=== PATIENT | female | born 1980 | race African-American/Black ===

== ENCOUNTER 2018-06-06 09:32 | Emergency (ER) | payer BC ==
[~2018-06-06] VITALS: Ht 165.1 cm; Wt 131.5 kg
[2018-06-06 10:11] VITALS: BP 153/92
--- NOTE | 2018-06-06 11:03 | PHYS DOC ---
Past Medical History Past Medical History: Asthma, Diabetes-Type II, Hypertension Past Surgical History: Alcohol Use: Occasionally Drug Use: None Adult General Chief Complaint Chief Complaint: FLU SYMPTOM HPI HPI Patient is a 37 year old AA female who presents to the emergency room today with complaints of a productive cough with clear sputum, fever, fatigue, hoarse voice, nasal congestion, sinus pressure, and hoarse voice since yesterday. Patient states she feels like she has a sinus infection, she reports history of frequent sinus infections. She denies any nausea, vomiting, diarrhea, abdominal pain, sore throat, or ear pain. Review of Systems Review of Systems Constitutional: See history of present illness Eyes: Denies changes HENT: See history of present illness Respiratory: Denies wheezing or shortness of breath; see history of present illness [] Cardiovascular: No additional information not addressed in HPI [] GI: Denies abdominal pain, nausea, vomiting, or diarrhea [] Musculoskeletal: Reports body aches Integument: Denies rash or skin lesions [] Neurologic: Reports sinus headache All other systems were reviewed and found to be within normal limits, except as documented in this note. Current Medications Current Medications Current Medications Medications (Trade) Dose Ordered Sig/Sravan Start Time Stop Time Status Last Admin Dose Admin Acetaminophen (Tylenol) 1,000 mg 1X ONCE 06/06/18 11:00 06/06/18 11:14 DC 06/06/18 11:22 1,000 MG Allergies Allergies Allergies Coded Allergies Type Severity Reaction Last Updated Verified No Known Drug Allergies 06/06/18 No Physical Exam Physical Exam Constitutional: Well developed, well nourished, no acute distress, non-toxic appearance, obese. [] HENT: Normocephalic, atraumatic, bilateral external ears normal, bilateral TMs normal, posterior pharynx normal, oropharynx moist, no oral exudates, nose normal. [] Eyes: PERRLA, conjunctiva normal, no discharge. [] Neck: Normal range of motion, no tenderness, supple, no stridor. [] Cardiovascular: Tachycardic regular rhythm, no murmur [] Lungs & Thorax: Bilateral breath sounds clear to auscultation [] Skin: Warm, dry, no erythema, no rash. [] Extremities: No cyanosis, ROM intact Neurologic: Alert and oriented X 3, no focal deficits noted. [] Psychologic: Affect normal, judgement normal, mood normal. [] Current Patient Data Vital Signs Vital Signs Date Time Temp Pulse Resp B/P (MAP) Pulse Ox O2 Delivery O2 Flow Rate FiO2 06/06/18 10:11 100.3 107 18 153/92 (112) 95 Room Air 100.3 Lab Values Laboratory Tests Test 06/06/18 10:04 Influenza Type A Antigen Positive (NEGATIVE) Influenza Type B Antigen Negative (NEGATIVE) EKG EKG [] Radiology/Procedures Radiology/Procedures [] Course & Med Decision Making Course & Med Decision Making Pertinent Labs and Imaging studies reviewed. (See chart for details) dx: influenza A prescription for tamiflu. encouraged fluids, alternate tylenol and ibuprofen prn pain/fever. Follow up with PCP if sx persist, return to ER if sx worsen. Patient verbalized an understanding of home care, medications, follow-up, and return to ED instructions and was in agreement with the plan of care. [] Dragon Disclaimer Dragon Disclaimer This electronic medical record was generated, in whole or in part, using a voice recognition dictation system. Departure Departure Impression: Primary Impression: Influenza A Disposition: 01 HOME, SELF-CARE Condition: STABLE Referrals: UNKNOWN PCP NAME (PCP) Patient Instructions: Influenza A (H1N1) Additional Instructions: Fill prescription(s) and use as directed. Recommend use of a Cool mist humidifier in room at bedtime. Alternate Tylenol or ibuprofen as needed for pain /fever. Increase clear fluids. Avoid airway triggers such as smoke, fragrance, dust, and pollen. May take [id number] cough suppressants as needed. Follow -up with your primary care doctor symptoms persist, return to the ER symptoms worsen. Scripts Oseltamivir Phosphate (TAMIFLU) 75 Mg Capsule 1 CAP PO BID for 5 Days, #10 CAP 0 Refills Prov: LEESA VIRAMONTES APRN 06/06/18 LEESA VIRAMONTES LAUNDRY HELPER Jun 06, 2018 11:03
[2018-06-06] MEDS: ACETAMINOPHEN 500 MG TABLET PO ONE (11:22)
[2018-06-06 11:51] LABS: INFLUENZA A PATIENT POSITIVE (NEGATIVE); INFLUENZA B PATIENT NEGATIVE (NEGATIVE)
[2018-06-06] MEDS ORDERED: OSEL75CA PO (12:13)
== END 2018-06-06 12:25 | disposition home or self-care (01) ==
LOC: ER 09:32
DX: J10.1 Influenza due to other identified influenza virus with other respiratory manifestations (principal); R53.83 Other fatigue; R49.0 Dysphonia; R51 Headache; R00.0 Tachycardia, unspecified; E11.9 Type 2 diabetes mellitus without complications; J45.909 Unspecified asthma, uncomplicated; I10 Essential (primary) hypertension; Z98.890 Other specified postprocedural states
CPT/HCPCS: 87804; 99283

== ENCOUNTER → 2019-10-01 | Outpatient (CLI) | payer BC, OTHER ==
[~2019-10-01] MED LIST: OSEL75CA PO
--- NOTE | 2019-10-01 10:20 | RAD ---
Examination: MRI left shoulder without contrast HISTORY: History of rotator cuff tear COMPARISON: None available TECHNIQUE: Multiplanar, multisequence MR imaging of the left shoulder performed without contrast. FINDINGS: The long head of the biceps tendon within the bicipital groove. The attachment of the long head the biceps tendon to the superior labral anchor grossly appears intact.. The attachment of the subscapularis, supraspinatus, infraspinatus tendon grossly appears intact. There is mild increased signal identified in the supraspinatus, infraspinatus tendons. Mild increased signal identified in the superior labrum. The muscle bulk grossly appears unremarkable. The acromion is type II. Mild degenerative changes acromioclavicular joint. IMPRESSION: 1. Mild rotator cuff tendinosis. 2. Minimal increased signal identified in the superior labrum, question small labral tear. Consider MR arthrogram. Electronically signed by: Boris Candelaria MD (10/01/2019 10:17 AM) [id number]
== END | disposition home or self-care (01) ==
LOC: MRI 08:06
PROVIDERS: ATTEND Internal Medicine
DX: M19.012 Primary osteoarthritis, left shoulder (principal); M75.102 Unspecified rotator cuff tear or rupture of left shoulder, not specified as traumatic
CPT/HCPCS: 73221

== ENCOUNTER → 2021-05-19 | Outpatient (CLI) | payer OTHER | LOC: SPEC 10:54 | PROVIDERS: ATTEND Nurse Practitioner Family | DX: Z01.419 Encounter for gynecological examination (general) (routine) without abnormal findings (principal) | CPT/HCPCS: 87623; 88175 ==